=== PATIENT | female | born 1995 | race American Indian/Alaskan Native ===

== ENCOUNTER 2017-06-06 09:04 | Emergency (ER) | payer BC ==
[2017-06-06 09:10] VITALS: TEMP 99.1
--- NOTE | 2017-06-06 10:22 | ED PDOC ---
HPI: CCC, URI, Sore Throat Time Seen by Provider: 06/06/17 09:21 Chief Complaint (Nursing): ENT Problem Chief Complaint (Provider): Cough History Per: Patient History/Exam Limitations: no limitations Onset/Duration Of Symptoms: Days (x 4) Current Symptoms Are (Timing): Still Present Additional Complaint(s): Rosalee is a 21 y/o female who presents to the ED c/o productive cough with green phlegm for the past 4 days. Patient also complains of associated lost voice and chest pain when she coughs. She denies fever. Her LMP was April 02 as patient is on control and gets it every 3 months. PMD: Soy Hsieh Past Medical History Reviewed: Historical Data, Nursing Documentation, Vital Signs Vital Signs: Last Vital Signs Temp 99.1 F 06/06/17 09:29 Pulse 114 H 06/06/17 09:29 Resp 22 06/06/17 09:29 BP 140/80 06/06/17 09:29 Pulse Ox 98 06/06/17 10:25 - Medical History PMH: No Chronic Diseases - Family History Family History: States: Unknown Family Hx - Home Medications Home Medications: Ambulatory Orders Medication Instructions Recorded Guaifenesin/Pseudoephedrne HCl 1 ter PO Q12H PRN #10 ter 06/06/17 [Mucinex D 600 mg-60 mg] Naproxen [Naprosyn] 500 mg PO BID PRN #20 tablet 06/06/17 - Allergies Allergies/Adverse Reactions: Allergies Allergy/AdvReac Type Severity Reaction Status Date / Time No Known Allergies Allergy Verified 06/06/17 09:29 Review of Systems ROS Statement: Except As Marked, All Systems Reviewed And Found Negative Constitutional: Negative for: Fever Cardiovascular: Positive for: Chest Pain (when coughing) Respiratory: Positive for: Cough (productive), Sputum (green) Physical Exam - Reviewed Nursing Documentation Reviewed: Yes Vital Signs Reviewed: Yes - Physical Exam Appears: Positive for: Well, Non-toxic, No Acute Distress Head Exam: Positive for: ATRAUMATIC, NORMAL INSPECTION, NORMOCEPHALIC Skin: Positive for: Normal Color, Warm, DRY Eye Exam: Positive for: Normal appearance ENT: Positive for: Pharynx Is (red), TM Is/Are (normal) Neck: Positive for: Normal, Painless ROM, Supple Cardiovascular/Chest: Positive for: Regular Rate, Rhythm Respiratory: Positive for: CNT, Normal Breath Sounds Lymphatic: Positive for: Normal Exam Neurologic/Psych: Positive for: Alert, Oriented - ECG O2 Sat by Pulse Oximetry: 98 (RA) Pulse Ox Interpretation: Normal Medical Decision Making Medical Decision Making: Time: 10:05 Initial Impression: Possible mild bronchitis Initial Plan: ------ Scribe~Attestation: Documented by Gui Jimenes, acting as a scribe for Alondra Novoa MD. Provider Scribe~Attestation: All medical record entries made by the Scribe were at my direction and personally dictated by me. I have reviewed the chart and agree that the record accurately reflects my personal performance of the history, physical exam, medical decision making, and the department course for this patient. I have also personally directed, reviewed, and agree with the discharge instructions and disposition. Disposition - Clinical Impression Clinical Impression: URI (upper respiratory infection) - Patient ED Disposition Is Patient to be Admitted: No Doctor Will See Patient In The: Office Counseled Patient/Family Regarding: Diagnosis, Need For Followup, Rx Given - Disposition Disposition: Routine/Home Disposition Time: 10:05 Condition: STABLE Prescriptions: Guaifenesin/Pseudoephedrne HCl [Mucinex D 600 mg-60 mg] 1 ter PO Q12H PRN #10 ter PRN Reason: cough/congestion Naproxen [Naprosyn] 500 mg PO BID PRN #20 tablet PRN Reason: Pain, Moderate (4-7) Instructions: Upper Respiratory Infection (ED) Forms: [employer] (Nepalese) - POA Present On Arrival: None
[2017-06-06 10:57] VITALS: BP 132/82; PULSE 98; RESP 16; O2SAT 99
== END 2017-06-06 10:57 | disposition home or self-care (01) ==
LOC: H.ER 09:04
DX: J06.9 Acute upper respiratory infection, unspecified (principal)

== ENCOUNTER 2017-09-21 04:11 | Emergency (ER) | payer BC ==
[2017-09-21 04:21] VITALS: PULSE 89; RESP 17; TEMP 98.5; O2SAT 99
--- NOTE | 2017-09-21 04:26 | ED PDOC ---
HPI: CCC, URI, Sore Throat Time Seen by Provider: 09/21/17 04:15 Chief Complaint (Nursing): ENT Problem Chief Complaint (Provider): throat pain History Per: Patient History/Exam Limitations: no limitations Onset/Duration Of Symptoms: Days (2) Current Symptoms Are (Timing): Still Present Associated Symptoms: Sore Throat, Nasal Congestion Additional Complaint(s): 22 y/o female presents with sore throat x 2 days. Associated left nasal congestion/left ear pressure x 1 day. Denies fever, headache, dizziness, nausea /vomiting, cough, shortness of breath, sick contacts. Past Medical History Reviewed: Historical Data, Nursing Documentation, Vital Signs Vital Signs: Last Vital Signs Temp 98.5 F 09/21/17 04:18 Pulse 89 09/21/17 04:18 Resp 17 09/21/17 04:18 BP 133/91 H 09/21/17 04:18 Pulse Ox 99 09/21/17 04:36 - Medical History PMH: No Chronic Diseases - Surgical History Surgical History: No Surg Hx - Family History Family History: States: Unknown Family Hx - Home Medications Home Medications: Ambulatory Orders Medication Instructions Recorded Guaifenesin/Pseudoephedrne HCl 1 ter PO Q12H PRN #10 ter 06/06/17 [Mucinex D 600 mg-60 mg] Naproxen [Naprosyn] 500 mg PO BID PRN #20 tablet 06/06/17 Fluticasone Nasal [Flonase] 1 actuation NS BID #1 bottle 09/21/17 - Allergies Allergies/Adverse Reactions: Allergies Allergy/AdvReac Type Severity Reaction Status Date / Time No Known Allergies Allergy Verified 06/06/17 09:29 Review of Systems ROS Statement: Except As Marked, All Systems Reviewed And Found Negative ENT: Positive for: Ear Pain (left ear pressure), Nose Congestion, Throat Pain Physical Exam - Reviewed Nursing Documentation Reviewed: Yes Vital Signs Reviewed: Yes - Physical Exam Appears: Positive for: Well, Non-toxic, No Acute Distress Head Exam: Positive for: ATRAUMATIC, NORMAL INSPECTION, NORMOCEPHALIC Skin: Positive for: Normal Color Eye Exam: Positive for: Normal appearance ENT: Positive for: TM Is/Are (RIght TM clear, left TM partially obstructed by cerumen plug. EACs clear bilaterally), Nasal Congestion, Pharyngeal Erythema. Negative for: Tonsillar Exudate, Tonsillar Swelling Neck: Positive for: Normal, Painless ROM Cardiovascular/Chest: Positive for: Regular Rate, Rhythm Respiratory: Positive for: Normal Breath Sounds Gastrointestinal/Abdominal: Positive for: Normal Exam Back: Positive for: Normal Inspection Extremity: Positive for: Normal ROM Neurologic/Psych: Positive for: Alert, Oriented - ECG O2 Sat by Pulse Oximetry: 99 - Progress ED Course And Treament: ibuprofen, rapid strep left ear irrigated using sterile water/IV tubing/syringe with successful removal of cerumen plug. Left TM clear Patient reports resolved symptoms in left ear after removal Patient educated on findings, discharged with rx Flonase Advised Tylenol/Ibuprofen PRN pain Return precautions given. Disposition - Clinical Impression Clinical Impression: URI (upper respiratory infection), Left ear impacted cerumen - Patient ED Disposition Is Patient to be Admitted: No Counseled Patient/Family Regarding: Studies Performed, Diagnosis, Need For Followup, Rx Given - Disposition Disposition: Routine/Home Disposition Time: 04:36 Condition: IMPROVED Prescriptions: Fluticasone Nasal [Flonase] 1 actuation NS BID #1 bottle Instructions: Ear Wax Impaction, Viral Upper Respiratory Infection, Adult (DC) Forms: [employer] (Sinhala)
[2017-09-21 05:01] VITALS: BP 128/83
== END 2017-09-21 04:52 | disposition home or self-care (01) ==
LOC: H.ER 04:11
DX: H61.22 Impacted cerumen, left ear (principal); J06.9 Acute upper respiratory infection, unspecified